=== PATIENT | female | born 1995 | race Two or more races ===

== ENCOUNTER 2022-01-06 01:23 | Emergency (ER) | payer SELFPAY ==
[~2022-01-06] VITALS: Ht 165.1 cm; Wt 52.0 kg
[2022-01-06 01:27] VITALS: BP 137/75
== END 2022-01-06 04:59 | disposition left against medical advice (07) ==
LOC: ER 01:40
DX: Z53.21 Procedure and treatment not carried out due to patient leaving prior to being seen by health care provider (principal)